=== PATIENT | female | born 1985 | race Caucasian/White ===

== ENCOUNTER 2017-12-14 16:28 | Emergency (ER) | payer OTHER ==
[2017-12-14 16:56] LABS: PLATELET COUNT 245 10^3/uL (150-400)
--- NOTE | 2017-12-14 16:57 | EDPHY ---
H & P Time Seen by Provider: 12/14/17 16:32 HPI/ROS: CHIEF COMPLAINT: Left lower abdominal pain HISTORY OF PRESENT ILLNESS: 32-year-old female LMP 11/10/17 presents with left lower quadrant pain. Onset of intermittent sharp and stabbing left lower quadrant pain 1 week ago. The pain occurs at random times, usually lasts 1 hr and then completely resolves. She went to a clinic just prior to arrival and had a positive test. She did not know that she was prior to today. She has ongoing constipation, without recent change. No bowel movement today. No fever, nausea or vomiting. REVIEW OF SYSTEMS: Constitutional: No fever, no chills Eyes: No visual changes ENT: No sore throat Respiratory: No cough, no shortness of breath Cardiac: No chest pain Gastrointestinal: No nausea, no vomiting Genitourinary: no dysuria Musculoskeletal: No leg pain or swelling Skin: No rash Neurological: No headache, no weakness Psychiatric: No depression Past Medical/Surgical History: Denies Social History: Smoking Status: Never smoked Physical Exam: General Appearance: Alert, pleasant Eyes: Pupils equal and round, no conjunctival pallor ENT, Mouth: Mucous membranes moist Neck: Normal inspection Respiratory: Lungs are clear to auscultation Cardiovascular: Regular rate and rhythm Gastrointestinal: Abdomen is soft and nontender Neurological: A&O, nonfocal, normal gait Skin: Warm and dry Extremities: Normal inspection Psychiatric: Mood and affect normal Constitutional: Initial Vital Signs Temperature (C) 36.7 C 12/14/17 16:30 Heart Rate 99 12/14/17 16:30 Respiratory Rate 17 12/14/17 16:30 Blood Pressure 115/93 H 12/14/17 16:30 O2 Sat (%) 99 12/14/17 16:30 O2 Delivery Mode Room Air Allergies/Adverse Reactions: No Known Allergies Allergy (Unverified 12/14/17 16:34) Home Medications: Medication Instructions Recorded FOLIC ACID 12/14/17 Vitamin B-12 12/14/17 Medical Decision Making - Diagnostics Imaging Results: Obstetrics Ultrasound 12/14/17 16:33 Impression: 1. Multiple tiny cystic areas in the endometrium, one of which could correspond to a gestational sac, although a definite gestational sac is not identified. Serial correlation with hCG is recommended with ultrasound, as clinically warranted. 2. Nonvisualization of the right ovary. Findings discussed with Onelia S. [place], M.D., on December 14, 2017 at 1737. ED Course/Re-evaluation: This patient presents with very early and intermittent left sided abdominal pain. Abdomen is soft and nontender on my exam. Clinically, I doubt that she has an ectopic . Pt localizes pain to just left of umbilicus. Pelvic ultrasound performed and reveals a 3 mm cystic area within the uterus, possibly an early . There is no evidence of ectopic or ovarian cyst. She remains asymptomatic on re-evaluation. Abdomen remained soft and nontender. I feel that she can follow up with [facility] [employer] for repeat quant bhcg in 2-3 days and for further evaluation. The left lower quadrant pain may certainly be secondary to constipation. The pain is not severe and I do not suspect renal colic or other worrisome etiology. Ectopic and abd pain precautions given. Differential Diagnosis: Differential diagnosis includes though it is not limited to ectopic , ovarian cyst, ovarian torsion, PID, UTI, appendicitis. - Data Points Laboratory Results: Laboratory Results 12/14/17 16:45 12/14/17 16:45 Departure - Departure Disposition: Home, Routine, Self-Care Clinical Impression: Abdominal pain Qualifiers: Abdominal location: left lower quadrant Qualified Code(s): R10.32 - Left lower quadrant pain Condition: Good Instructions: Acute Abdominal Pain (ED) Additional Instructions: Return for worsening pain, fever, dizziness, vaginal bleeding or any concerns. Drink plenty of fluids. Referrals: Xenia Iqbal MD [Medical Doctor] - As per Instructions (Call to make an appointment. You should have a repeat blood test on Sunday or Sunday.)
[2017-12-14 18:07] VITALS: BP 127/76
== END 2017-12-14 18:10 | disposition home or self-care (01) ==
DX: O26.891 Other specified pregnancy related conditions, first trimester (principal); R10.32 Left lower quadrant pain; Z3A.01 Less than 8 weeks gestation of pregnancy

== ENCOUNTER 2018-08-18 07:44 | Inpatient (IN) | payer OTHER ==
[2018-08-18] MEDS ORDERED: TERBUTALINE SULFATE 1 MG/ML VIAL IV PRN (08:41)
[2018-08-18] MEDS ORDERED: OXYTOCIN/RINGERS LACTATE 1,000 ML IV PRN (08:41)
[2018-08-18] MEDS ORDERED: IBUPROFEN 600 MG TAB PO PRN (08:41)
[2018-08-18] MEDS ORDERED: MISOPROSTOL 200 MCG TAB PR PRN (08:41)
[2018-08-18] MEDS ORDERED: OLIVE OIL 118 ML BTL MISC PRN (08:41)
[2018-08-18] MEDS ORDERED: LIDOCAINE 1% 300 MG/30 ML SDV SC PRN (08:41)
[2018-08-18] MEDS ORDERED: EPSOM SALT 454 GM TP PRN (08:41)
[2018-08-18] MEDS ORDERED: LR 1,000 ML IV PRN (08:41)
[2018-08-18] MEDS ORDERED: PENICILLIN G POTASSIUM 5,000,000 UNIT in D5W 150 ML IV ONE (08:44)
[2018-08-18 09:26] LABS: PLATELET COUNT 173 10^3/uL (150-400)
--- NOTE | 2018-08-18 11:44 | GHP ---
DATE OF ADMISSION: 08/18/2018 HISTORY: The patient is a 32-year-old, G1, P0, at 39+ weeks' gestation with an estimated due date of 08/20/2018, who presents to Labor and Delivery after leakage of fluid that began this a.m., approximately 5 to 6 a.m. The fluid has been clear, but the patient has noted scant blood when she goes to the bathroom. The patient has felt good movement and essentially not noticing anything that she would consider a contraction. Occasionally, she has lower abdominal cramping. The patient was aware of a positive GBS culture and presents to Labor and Delivery knowing she needs antibiotics. CARE: The patient has been followed with [facility] since first trimester; however, she was in [place] for 2 months during the second trimester. The patient has essentially had an uncomplicated other than a visit to the emergency room at 5 weeks gestation due to cramping, which spontaneously resolved. The anatomy scan was done in [facility] and was felt to have inadequate anatomy clearance for cardiac sites and the patient had a repeat ultrasound at 36 weeks gestation with [facility]. All anatomy was cleared. The posterior placenta was normal and not low. There is normal amniotic fluid. Estimated weight was the 72nd percentile in the vertex position. Several times during visits, the patient has discussed fear of vaginal exams and fear of Pitocin and desire to avoid induction or need for medication. The patient recently has been asking for an elective if she does not spontaneously labor. The patient and our office staff have been going to trying to contact insurance to see if an elective would be covered by insurance. No answer from insurance at this point. LABS: Include maternal blood type A positive with negative antibody screen. RPR nonreactive. Rubella immune. Hepatitis B surface antigen negative. HIV negative. Standard genetic testing was negative. Verify genetic testing was normal. MSAFP was negative. Urine drug screen was negative. Urine gonorrhea and chlamydia were negative. Urine culture was negative, other than small counts of group B strep. Varicella testing was immune. A 2-hour glucose test was normal in [place]. Hematocrit have varied between 37 and 38 through the . GBS vaginal culture was not repeated as it was identified in the urine. PAST MEDICAL HISTORY: Negative. PAST SURGICAL HISTORY: Negative. ALLERGIES: Patient has no known drug allergies. CURRENT MEDICATIONS: Only vitamins. SOCIAL HISTORY: The patient is . Lives with her . The patient is a nonsmoker. No alcohol or drug use. FAMILY HISTORY: Down syndrome in a cousin and the patient has a maternal uncle and a paternal uncle who have had strokes. Patient's father and paternal uncle have cardiac abnormal valves. REVIEW OF SYSTEMS: The patient has cramping as noted in the HPI. The patient, otherwise, other than anxiety about labor and exams, does not have any complaints. Is not having any shortness of breath or wheezing. Has not had any abnormal heart patterns, chest pain, or palpitations. Patient has no nausea or vomiting, or diarrhea. Patient has had the leakage of fluid as noted above with trace blood. PHYSICAL EXAM: VITAL SIGNS: Normal vital signs and is afebrile. See nursing documentation for full details. GENERAL: The patient is a well-developed, well -nourished, [place] female in no signs of physical discomfort, other than when she is laying flat describes low abdominal cramps. LUNGS: Clear to auscultation bilaterally. CARDIOVASCULAR: Regular rate and rhythm. ABDOMEN: Shows a gravid uterus. heart tone monitoring reveals very quiet patterns of cardiac activity with a baseline in the 140s with reduced variability and minimal accelerations, alternating with periods of category 1 signs with good variability and accelerations. There are no decelerations noted. The baby 's pattern is consistent with sleep wake cycles. Contraction monitoring initially picked up contractions that the patient did not perceive approximately every 10 minutes, but these have reduced after high IV hydration. PELVIC: Deferred. EXTREMITIES: Nontender and mild lower extremity edema. ASSESSMENT: Intrauterine at 39+ weeks' gestation, spontaneous rupture of membranes with clear fluid. Positive group B Streptococcus culture in the urine and currently has received her first dose of penicillin antibiotics. Maternal blood type A positive, rubella immune. Patient has a strong anxiety about medications for induction and has discussed wanting a primary section if she does not spontaneously labor. PLAN: The patient will continue to receive antibiotics q.4 hours. We will have intermittent monitoring until contractions increase, unless the patient desires to have cardiac monitoring more regularly for reassurance. The patient was given options of non-medication ways to stimulate as far as acupuncture and possibly nipple stimulation. The patient is advised that generally, I would recommend stimulating contractions if she has not had any signs of spontaneous labor by 12 hours of rupture of membranes. The patient is given reassurance that medications are used with close surveillance of tolerance of contraction pattern, and in general recommend trying to induce her labor to attempt a vaginal as opposed to doing an elective . The patient will consider whether or not she will agree to medications if no spontaneous onset of labor. If the patient has not spontaneously had a good labor pattern or agree to any medication, I would generally recommend section after 24 hours of rupture of membranes. /[id number]/MODL MTDD
[2018-08-18] MEDS: PENICILLIN G POTASSIUM 2,500,000 UNIT in D5W 150 ML IV SCH ×3 (13:35→20:00)
--- NOTE | 2018-08-18 13:56 | OBPROG ---
Labor Progress Note Assessment/Plan: Assessment: IUP at 39+wks SROM, clear with +GBS bacturia and on abx no onset of labor yet. vtx Plan: Will cont q 4 hr abx and intermittent monitoring. if no SOOC by 6 pm will offer misoprostil buccal. Pt has declined exam until laboring. 08/18/18 13:53 Subjective/Intrapartum Course: 08/18/18 13:55 Pt doing fine. Willing to wait for labor. occas cramps. Objective: 08/18/18 09:04 Patient ABO/Rh A POSITIVE 08/18/18 09:04 - SVE Membranes: SROM (6a) Amniotic Fluid Color: Clear - Contraction Pattern Assessment Current Contraction Pattern: Other (Specify) (infreq) - FHR Assessment Echeverria FHR (bpm): 130 FHR Pattern Variability: Moderate FHR Category: 1 (reactive for NSTs, good accels, GBTBV, no decels) Oxytocin Orders Assessment - Pre-Induction/Augmentation Assessment Gestational Age: 39 week(s) and 5 day(s) ICD10 Worksheet Patient Problems: Problems Problem Status Onset EARLY LABOUR Acute SROM Acute
[2018-08-18] MEDS ORDERED: MISOPROSTOL 100 MCG TAB PO PRN (18:39)
[2018-08-18] MEDS ORDERED: AMMONIA AROMATIC 1 EACH AMP IH ONE (19:02)
[2018-08-18] MEDS ORDERED: LIDOCAINE 1% 300 MG/30 ML SDV ONE (19:02)
[2018-08-18] MEDS ORDERED: OLIVE OIL 118 ML BTL ONE (19:02)
[2018-08-18] MEDS ORDERED: MISOPROSTOL 200 MCG TAB ONE (19:03)
[2018-08-18] MEDS ORDERED: TERBUTALINE SULFATE 1 MG/ML VIAL ONE (19:03)
[2018-08-18] MEDS ORDERED: OXYTOCIN 10 UNIT/ML VIAL ONE (19:03)
[2018-08-18] MEDS: AMPICILLIN SODIUM 1 GM in NS 100 ML IV SCH (21:37)
--- NOTE | 2018-08-18 23:54 | OBPROG ---
Labor Progress Note Assessment/Plan: Assessment: IUP at 39+wks SROM, clear with +GBS bacturia and on abx induction with misoprostil, first dose approx 2 hrs ago - contrx building vtx Plan: Will cont q 4 hr abx. Cont monitoring now with ctxns q 4-5. Cat I tracing. Pt has declined exam until MARY. May have MARY whenever 08/18/18 13:53 08/18/18 23:47 Subjective/Intrapartum Course: 08/18/18 13:55 Pt doing fine. Willing to wait for labor. occas cramps. 08/18/18 23:54 Pt doing ok. Feeling ctxn pressure like strong menstral cramps. recurring q 4- 5 min. wants to have prediction about how long it'll take - hard to evaluate without exam. cont clear fluid leaking - some blood tinged. disc plan of miso q 4 hrs. MARY whenever desired Objective: 08/18/18 09:04 Patient ABO/Rh A POSITIVE 08/18/18 09:04 - SVE Membranes: SROM (6a) Amniotic Fluid Color: Clear - Contraction Pattern Assessment Current Contraction Pattern: Regular (q 4-6 min), Other (Specify) (infreq) - FHR Assessment Echeverria FHR (bpm): 150 FHR Pattern Variability: Moderate FHR Category: 1 Oxytocin Orders Assessment - Pre-Induction/Augmentation Assessment Gestational Age: 39 week(s) and 5 day(s) ICD10 Worksheet Patient Problems: Problems Problem Status Onset EARLY LABOUR Acute SROM Acute
[2018-08-19] MEDS ORDERED: PHENYLEPHRINE HCL 100 MCG/ML SYR ONE (00:44)
[2018-08-19] MEDS ORDERED: fentaNYL 100 MCG/2 ML INJ ONE (00:44)
[2018-08-19] MEDS ORDERED: fentaNYL 200 MCG, BUPIVACAINE 0.5% 20 ML in NS 100 ML EP ONE (01:00)
[2018-08-19] MEDS ORDERED: PHENYLEPHRINE HCL 100 MCG/ML SYR IVP PRN (01:14)
[2018-08-19] MEDS ORDERED: NALOXONE HCL 0.4 MG/ML INJ IVP PRN (01:14)
[2018-08-19] MEDS ORDERED: ONDANSETRON 4 MG/2 ML VIAL IVP PRN (01:14)
--- NOTE | 2018-08-19 01:16 | PREANESOB ---
Obstetric Pre-Anesthesia Info - General Info Proposed Procedure: labor epidural NPO Start Time: 19:00 : 1 Para: 0 AMALIA: 08/20/18 Gestational Age: 39 week(s) and 5 day(s) - Info Status: Full Term Monitors: External FHR Pattern: Reassuring - Labor Status Amniotic Fluid Color: Clear Magnesium Sulfate in Use: No Indications for Labor Analgesia: Pain Control Labor Epidural: Yes Anesthesia Allergies/Adverse Reactions: Allergy/AdvReac Type Severity Reaction Status Date / Time No Known Allergies Allergy Verified 08/18/18 19:06 Home Medications: Medication Instructions Recorded FOLIC ACID 12/14/17 Vitamin B-12 12/14/17 Visit Medications: Generic Name Dose Route Start Last Admin Trade Name Freq PRN Reason Stop Dose Admin Ephedrine Sulfate 10 mg 08/19/18 01:14 Ephedrine Sulfate IV 02/15/19 01:13 .Q2M PRN Hypotension Lactated Ringer's 1,000 mls @ 0 mls/hr 08/18/18 08:41 08/18/18 09:04 Lr IV 08/19/18 08:40 1,000 mls PRN PRN Administration SEE PROTOCOL CONDITIONS Protocol Per Protocol Oxytocin/Lactated Ringer's 1,000 mls @ 125 mls/hr 08/18/18 08:41 Pitocin 20 Units/Lr (Premix) IV PRN PRN Post bleeding Ampicillin Sodium 1 gm/ Sodium 100 mls @ 200 mls/hr 08/18/18 21:45 08/18/18 21:37 Chloride IV 09/17/18 21:44 100 mls Q4H HELENE Administration Protocol Fentanyl/Bupivacaine HCl 100 mls @ 0 mls/hr 08/19/18 01:30 Fentanyl/Bupivacaine/Ns 2 Mcg/Ml 0.1% (Premix EP 08/29/18 01:29 CONT HELENE Protocol As Directed Lactated Ringer's 500 mls @ 0 mls/hr 08/19/18 01:30 Lr IV 02/15/19 01:29 CONT HELENE As Directed Ibuprofen 600 mg 08/18/18 08:41 Motrin PO ONCE PRN post , pain Lidocaine HCl 300 mg 08/18/18 08:41 Lidocaine Hcl 1% SC 02/14/19 08:40 ONCE PRN episiotomy Magnesium Sulfate 454 gm 08/18/18 08:41 Epsom Salt TP 06/07/19 08:40 Q1H PRN perineal discomfort Misoprostol 800 - 1,000 mcg 08/18/18 08:41 Cytotec MI ONCE PRN Vaginal Atony/Bleeding Misoprostol 50 mcg 08/18/18 18:39 08/18/18 21:37 Cytotec PO 02/14/19 18:38 50 mcg Q4H PRN Administration FOR INDUCTION Naloxone HCl 0.4 mg 08/19/18 01:14 Narcan IVP 02/15/19 01:13 PRN PRN Respiratory depression Hazel Green Oil 118 ml 08/18/18 08:41 Sweet Oil MISC 02/14/19 08:40 ONCE PRN perineal massage Ondansetron HCl 4 mg 08/19/18 01:14 Zofran IVP 08/20/18 01:13 Q4HRS PRN Nausea/Vomiting, Can't Take PO Phenylephrine HCl 100 mcg 08/19/18 01:14 Neosynephrine IVP 02/15/19 01:13 .Q2M PRN Hypotension Terbutaline Sulfate 0.25 mg 08/18/18 08:41 Brethine IV 02/14/19 08:40 ONCE PRN Tachysystole Discontinued Medications Generic Name Dose Route Start Last Admin Trade Name Freq PRN Reason Stop Dose Admin Ammonia (Aromatic Spirit) Confirm 08/18/18 19:02 Ammonia Aromatic Administered 08/18/18 19:03 Dose 1 each IH .STK-MED ONE Fentanyl Confirm 08/19/18 00:44 Sublimaze Administered 08/19/18 00:45 Dose 100 mcg .ROUTE .STK-MED ONE Penicillin G Potassium 5,000, 160 mls @ 160 mls/hr 08/18/18 08:44 08/18/18 09 :27 000 unit/ Dextrose IV 08/18/18 09:43 160 mls ONCE ONE Administration Protocol Penicillin G Potassium 2,500, 155 mls @ 155 mls/hr 08/18/18 10:00 08/18/18 20 :00 000 unit/ Dextrose IV 09/17/18 09:59 Not Given Q4HRS HELENE Protocol Fentanyl 200 mcg/ Bupivacaine 100 mls @ 0 mls/hr 08/19/18 01:00 HCl 20 ml/ Sodium Chloride EP 08/19/18 01:01 ONCALL ONE Protocol As Directed Lidocaine HCl Confirm 08/18/18 19:02 Lidocaine Hcl 1% Administered 08/18/18 19:03 Dose 300 mg .ROUTE .STK-MED ONE Misoprostol Confirm 08/18/18 19:03 Cytotec Administered 08/18/18 19:04 Dose 1,000 mcg .ROUTE .STK-MED ONE Hazel Green Oil Confirm 08/18/18 19:02 Sweet Oil Administered 08/18/18 19:03 Dose 118 ml .ROUTE .STK-MED ONE Oxytocin Confirm 08/18/18 19:03 Pitocin Administered 08/18/18 19:04 Dose 40 unit .ROUTE .STK-MED ONE Phenylephrine HCl Confirm 08/19/18 00:44 Neosynephrine Administered 08/19/18 00:45 Dose 1,000 mcg .ROUTE .STK-MED ONE Terbutaline Sulfate Confirm 08/18/18 19:03 Brethine Administered 08/18/18 19:04 Dose 1 mg .ROUTE .STK-MED ONE - Anesthesia History Response to Local Anesthetics: Normal Anesthesia & Operative History: No Prior Problems Family Anesthesia History: Negative - Social History Substance Use/Abuse: Denies - Vital Signs Height/Weight (Nursing): Height 172.72 cm Weight 101.151 kg - Focused Exam Mallampati Score: Class 2 Mouth exam: normal dental/mouth exam Pulmonary: no respiratory distress Cardiovascular: regular rate and rhythym Labs: 08/18/18 09:04 Patient ABO/Rh A POSITIVE 08/18/18 09:04 - Plan Consent Signed and on Chart: Yes Patient/Guardian Understands and Agrees to Plan: Yes
[2018-08-19] MEDS ORDERED: fentaNYL 200 MCG, BUPIVACAINE 0.5% 20 ML in NS 100 ML EP SCH (01:30)
[2018-08-19] MEDS ORDERED: fentaNYL 2MCG/ML/BUP 0.1% RTU 100 ML EP SCH (01:30)
[2018-08-19] MEDS ORDERED: LR 500 ML IV SCH (01:30)
[2018-08-19] MEDS: AMPICILLIN SODIUM 1 GM in NS 100 ML IV SCH ×3 (02:18→10:19)
--- NOTE | 2018-08-19 05:55 | OBPROG ---
Labor Progress Note Assessment/Plan: Assessment: IUP at 39+wks SROM, clear with +GBS bacturia and on abx -- 24 HOUR ROM induction with misoprostil, only dose at 9:45 vtx MARY - reports pain and refuses an exam currently and anesth on way to redose Plan: Will cont q 4 hr abx. Recent RN exam at approx 5a was probably complete - she couldn't feel cervix/-1 station but she wanted confirmation 08/18/18 13:53 08/18/18 23:47 08/19/18 05:48 Subjective/Intrapartum Course: 08/18/18 13:55 Pt doing fine. Willing to wait for labor. occas cramps. 08/18/18 23:54 Pt doing ok. Feeling ctxn pressure like strong menstral cramps. recurring q 4- 5 min. wants to have prediction about how long it'll take - hard to evaluate without exam. cont clear fluid leaking - some blood tinged. disc plan of miso q 4 hrs. MARY whenever desired 08/19/18 05:55 pt had rec'd first dose of miso at 9:45 last pm. Stated cramping cont to increase and req'd MARY at 00:21 - this was placed by Dr Cast and when RN checked cx after she was comfortable, it was 2-3/70/-2 (2:12a). RN checked on her several times and she was sleeping. Pt reports that pain has been building despite the MARY and this has made her very anxious as she thought she wouldn't feel anything. She just pushed button 3 times in a row and reports better pain control - but refuses exam until Dr Cast comes to increase medicine. RN checked her at approx 5:10, but pt quite uncomf and guarding with exam and RN not sure of her exam but felt she was complete/-1. Objective: 08/18/18 09:04 Patient ABO/Rh A POSITIVE 08/18/18 09:04 - SVE Membranes: SROM (6a) Amniotic Fluid Color: Clear - Contraction Pattern Assessment Current Contraction Pattern: Regular (q 3-5 min), Other (Specify) Oxytocin Orders Assessment - Pre-Induction/Augmentation Assessment Gestational Age: 39 week(s) and 5 day(s) ICD10 Worksheet Patient Problems: Problems Problem Status Onset EARLY LABOUR Acute Prolonged rupture of membranes Acute SROM Acute - ICD10 Problem Qualifiers (1) Prolonged rupture of membranes
[2018-08-19] MEDS ORDERED: LIDOCAINE 2% 2 ML INJ ONE ×2 (06:04)
[2018-08-19] MEDS ORDERED: LR 500 ML IV PRN (06:15)
[2018-08-19] MEDS ORDERED: OXYTOCIN/RINGERS LACTATE 500 ML IV SCH (06:30)
--- NOTE | 2018-08-19 07:58 | OBPROG ---
Labor Progress Note Assessment/Plan: Assessment: 23 at 39w6d, s/p PROM x 25+ hours now, has reached complete dilation as of nearly 2 hours ago. Currently, no e/o chorioamnionitis. Long course regarding pt's discomfort and anxiety with vaginal exams. Epidural has been bolused and pt currently not feeling any pain. GBS pos - has been on amp. Plan: Continue pitocin - will try to optimize timing of contractions and start pushing soon. Anticipate vaginal delivery. Cont amp until delivery. Xenia Iqbal MD, FACOG, [facility] 08/19/18 07:44 Subjective/Intrapartum Course: 08/18/18 13:55 Pt doing fine. Willing to wait for labor. occas cramps. 08/18/18 23:54 Pt doing ok. Feeling ctxn pressure like strong menstral cramps. recurring q 4- 5 min. wants to have prediction about how long it'll take - hard to evaluate without exam. cont clear fluid leaking - some blood tinged. disc plan of miso q 4 hrs. MARY whenever desired 08/19/18 05:55 pt had rec'd first dose of miso at 9:45 last pm. Stated cramping cont to increase and req'd MARY at 00:21 - this was placed by Dr Cast and when RN checked cx after she was comfortable, it was 2-3/70/-2 (2:12a). RN checked on her several times and she was sleeping. Pt reports that pain has been building despite the MARY and this has made her very anxious as she thought she wouldn't feel anything. She just pushed button 3 times in a row and reports better pain control - but refuses exam until Dr Cast comes to increase medicine. RN checked her at approx 5:10, but pt quite uncomf and guarding with exam and RN not sure of her exam but felt she was complete/-1. 08/19/18 07:58 Pt currently is resting comfortably. Still quite anxious about pushing and pain. Not feeling any pain currently. Objective: 08/18/18 09:04 Patient ABO/Rh A POSITIVE 08/18/18 09:04 Pt resting comfortably, with oxygen mask on, Farid at bedside holding her hand. - SVE Membranes: SROM (6a) Amniotic Fluid Color: Clear - Contraction Pattern Assessment Current Contraction Pattern: Regular (q 3-5 min), Other (Specify) (contractions q 2-5 min currently) - FHR Assessment Echeverria FHR Pattern Variability: Moderate FHR Category: 1 (occasional variable contraction) Oxytocin Orders Assessment - Pre-Induction/Augmentation Assessment Gestational Age: 39 week(s) and 5 day(s) ICD10 Worksheet Patient Problems: Problems Problem Status Onset Prolonged rupture of membranes Acute
--- NOTE | 2018-08-19 09:39 | OBPROG ---
Labor Progress Note Assessment/Plan: Assessment: 23 at 39w6d, s/p PROM x 25+ hours now, has reached complete dilation as of nearly 2 hours ago. Currently, no e/o chorioamnionitis. Long course regarding pt's discomfort and anxiety with vaginal exams. Epidural has been bolused and pt currently not feeling any pain. GBS pos - has been on amp. Plan: Continue pitocin - will try to optimize timing of contractions and start pushing soon. Anticipate vaginal delivery. Cont amp until delivery. Xenia Iqbal MD, FACOG, [facility] 08/19/18 07:44 08/19/18 09:36 A/p: 23 G1 at 39w6d, s/p PROM 28 hours - currently no e/o chorioamnionitis. Has been completely dilated over 3.5 hours, passive descent allowed due to pt anxiety and pain control issues - has just started pushing. Anxiety level is very high, very concerned about pain and pushing - but has done well - pushing became effective after the first 3-4 contractions. I pushed with her for about 15 minutes, at pt request. Anticipate vaginal delivery. Xenia Iqbal MD, FACOG Subjective/Intrapartum Course: 08/18/18 13:55 Pt doing fine. Willing to wait for labor. occas cramps. 08/18/18 23:54 Pt doing ok. Feeling ctxn pressure like strong menstral cramps. recurring q 4- 5 min. wants to have prediction about how long it'll take - hard to evaluate without exam. cont clear fluid leaking - some blood tinged. disc plan of miso q 4 hrs. MARY whenever desired 08/19/18 05:55 pt had rec'd first dose of miso at 9:45 last pm. Stated cramping cont to increase and req'd MARY at 00:21 - this was placed by Dr Cast and when RN checked cx after she was comfortable, it was 2-3/70/-2 (2:12a). RN checked on her several times and she was sleeping. Pt reports that pain has been building despite the MARY and this has made her very anxious as she thought she wouldn't feel anything. She just pushed button 3 times in a row and reports better pain control - but refuses exam until Dr Cast comes to increase medicine. RN checked her at approx 5:10, but pt quite uncomf and guarding with exam and RN not sure of her exam but felt she was complete/-1. 08/19/18 07:58 Pt currently is resting comfortably. Still quite anxious about pushing and pain. Not feeling any pain currently. 08/19/18 09:39 Pt anxious but willing to push. Was able to push effectively after being coached for the first few contractions. Objective: 08/18/18 09:04 Patient ABO/Rh A POSITIVE 08/18/18 09:04 37.2 74 109/62 90% on RA SVE c/c/+2 with pushing, clear fluid comes out with each push. - SVE Membranes: SROM (6a) Amniotic Fluid Color: Clear - Contraction Pattern Assessment Current Contraction Pattern: Regular (q 3-5 min), Other (Specify) (contractions q 2-5 min currently) - FHR Assessment Echeverria FHR (bpm): 150 FHR Pattern Variability: Moderate FHR Category: 2 (variable contractions with pushing) Oxytocin Orders Assessment - Pre-Induction/Augmentation Assessment Gestational Age: 39 week(s) and 5 day(s) ICD10 Worksheet Patient Problems: Problems Problem Status Onset Prolonged rupture of membranes Acute
--- NOTE | 2018-08-19 11:07 | OBDEL ---
Info Type: Vaginal Presentation at Delivery: Vertex L&D Analgesia/Anesthesia Type: Epidural GBS+: Yes Antibiotic Used for + GBS: Ampicillin Intrapartum Medications: Generic Name Dose Route Start Last Admin Trade Name Freq PRN Reason Stop Dose Admin Ampicillin Sodium 1 gm/ Sodium 100 mls @ 200 mls/hr 08/18/18 21:45 08/19/18 10:19 Chloride IV 09/17/18 21:44 100 mls Q4H HELENE Administration Protocol Oxytocin/Lactated Ringer's 500 mls @ 0 mls/hr 08/19/18 06:30 08/19/18 06:39 Pitocin 30 Units/Lr (Premix) IV 02/15/19 06:29 500 mls CONT HELENE Administration Protocol Per Protocol Misoprostol 50 mcg 08/18/18 18:39 08/18/18 21:37 Cytotec PO 02/14/19 18:38 50 mcg Q4H PRN Administration FOR INDUCTION Discontinued Medications Generic Name Dose Route Start Last Admin Trade Name Freq PRN Reason Stop Dose Admin Lactated Ringer's 1,000 mls @ 0 mls/hr 08/18/18 08:41 08/18/18 09:04 Lr IV 08/19/18 08:40 1,000 mls PRN PRN Administration SEE PROTOCOL CONDITIONS Protocol Per Protocol Penicillin G Potassium 5,000, 160 mls @ 160 mls/hr 08/18/18 08:44 08/18/18 09 :27 000 unit/ Dextrose IV 08/18/18 09:43 160 mls ONCE ONE Administration Protocol Penicillin G Potassium 2,500, 155 mls @ 155 mls/hr 08/18/18 10:00 08/18/18 20 :00 000 unit/ Dextrose IV 09/17/18 09:59 Not Given Q4HRS [facility] Protocol Fentanyl 200 mcg/ Bupivacaine 100 mls @ 0 mls/hr 08/19/18 01:00 08/19/18 02: 10 HCl 20 ml/ Sodium Chloride EP 08/19/18 01:01 100 mls ONCALL ONE Administration Protocol As Directed - Hospital Course Intrapartum: 08/18/18 13:55 Pt doing fine. Willing to wait for labor. occas cramps. 08/18/18 23:54 Pt doing ok. Feeling ctxn pressure like strong menstral cramps. recurring q 4- 5 min. wants to have prediction about how long it'll take - hard to evaluate without exam. cont clear fluid leaking - some blood tinged. disc plan of miso q 4 hrs. MARY whenever desired 08/19/18 05:55 pt had rec'd first dose of miso at 9:45 last pm. Stated cramping cont to increase and req'd MARY at 00:21 - this was placed by Dr Cast and when RN checked cx after she was comfortable, it was 2-3/70/-2 (2:12a). RN checked on her several times and she was sleeping. Pt reports that pain has been building despite the MARY and this has made her very anxious as she thought she wouldn't feel anything. She just pushed button 3 times in a row and reports better pain control - but refuses exam until Dr Cast comes to increase medicine. RN checked her at approx 5:10, but pt quite uncomf and guarding with exam and RN not sure of her exam but felt she was complete/-1. 08/19/18 07:58 Pt currently is resting comfortably. Still quite anxious about pushing and pain. Not feeling any pain currently. 08/19/18 09:39 Pt anxious but willing to push. Was able to push effectively after being coached for the first few contractions. Indications for Delivery: SROM Vaginal Delivery - Delivery Provider Delivery Physician/CNM: Xenia Iqbal - Labor and Delivery Onset of Contractions Date: 08/18/18 Onset of Contractions Time: 06:00 Onset of Contractions Type: Induced Rupture of Membranes Date: 08/18/18 Rupture of Membranes Time: 06:00 Rupture of Membranes Type: Spontaneous Amniotic Fluid Color: Clear Dilation Complete Date: 08/19/18 Dilation Complete Time: 05:45 Placenta Delivery Date: 08/19/18 Placenta Delivery Time: 10:33 Total Hours of Labor: 28 Laceration: 2nd Degree, Other (Specify) (bilateral sulcus tears) Repair: 3-0, Vicryl Vaginal Sponge Count Correct: Yes Vaginal Needle Count Correct: Yes Vaginal Sweep Performed: Yes EBL: 300 Delivery Events: Nuchal Cord (x1) Delivery Comment: Pt admitted after SROM at 0600 on 08/18/18 and declined an exam until 0215 on 06/27. Cephalic presentation was confirmed by US. Finally agreed to misoprostil induction, which stimulated labor. She received an epidural. She progressed to complete dilation by 0545 (her second vaginal exam). Passive descent was allowed for a prolonged period due to issues with pain control and anxiety. She then pushed for just over 1 hr and 18 min. The vertex delivered, JF presentation, one nuchal cord was reduced on the perineum, and bulb suctioning was done on the perineum. Easy delivery of body with one more push, no dystocia noted. Baby was delivered immediately to maternal chest. Cord clamping was delayed by 1 minute, then was cut. 2nd deg lac ws noted, along with bilateral sulcus tears - all repaired in the standard fashion with 3.0 Vicryl. Pt tolerated the procedure well, and had Apgars of 9 at 1 min and 10 at 5 min, and was left in the room, stable, with RN present. - Medications Labor Augmentation/Induction Methods Used: Pitocin, Misoprostol Labor Augmentation/Induction Indication: Inadequate Contraction Frequency, Inadequate Contraction Strength [place] Data AMALIA: 08/20/18 Gestational Age: 39 week(s) and 6 day(s) [place] Delivery Date: 08/19/18 Delivery Time: 10:31 Sex of : Female Score (1 Min): 9 Score (5 Min): 10 ICD10 Worksheet Patient Problems: Problems Problem Status Onset Prolonged rupture of membranes Acute (spontaneous vaginal delivery) Acute - ICD10 Problem Qualifiers (1) (spontaneous vaginal delivery)
[2018-08-19] MEDS ORDERED: SIMETHICONE 80 MG TAB CHEW PO PRN (11:31)
[2018-08-19] MEDS ORDERED: HYDROCORTISONE 0.5% CREAM TP PRN (11:31)
[2018-08-19] MEDS ORDERED: DOCUSATE SODIUM 100 MG CAP PO PRN (11:31)
[2018-08-19] MEDS: IBUPROFEN 600 MG TAB PO SCH ×2 (11:45→17:57)
[2018-08-19] MEDS: ACETAMINOPHEN 325 MG TAB PO SCH ×2 (16:49→22:27)
[2018-08-20] MEDS: AMPICILLIN SODIUM 1 GM in NS 100 ML IV SCH ×5 (01:45→23:41)
[2018-08-20] MEDS: ACETAMINOPHEN 325 MG TAB PO SCH ×5 (04:13→22:49)
[2018-08-20] MEDS: IBUPROFEN 600 MG TAB PO SCH ×4 (05:56→17:50)
--- NOTE | 2018-08-20 10:38 | OBPP ---
Progress Note Assessment/Plan: Assessment: 32 y/o PPD #1 s/p doing well Plan: Ordered iron today. consult today. Routine PPC. 08/20/18 10:37 Subjective/ Course: 08/20/18 10:35 Pt is doing well this am. She continues to have perineal pain and some rectal pain. She is taking Ibuprofen and Tylenol regularly. Min lochia, ambulating and voiding without difficulty. She is working on breast feeding, baby is having difficulty latching on left breast. Objective: 08/20/18 06:05 Patient ABO/Rh A POSITIVE 08/18/18 09:04 Temp Pulse Resp BP Pulse Ox 36.1 C 77 14 102/72 93 08/20/18 08:00 08/20/18 08:00 08/20/18 08:00 08/20/18 08:00 08/20/18 08:00 Uterine Position/Fundal Height: Umbilicus -2 Uterine Tone: Firm Physical Exam - Physical Exam General Appearance: alert, no apparent distress Neck: non-tender, full range of motion, supple Respiratory: chest non-tender, lungs clear, normal breath sounds Cardiac/Chest: regular rate, rhythm Abdomen: normal bowel sounds, other (perineum well approximated, no hemorrhoids , no edema) Extremities: swelling (1+), Kiarra's sign (neg)
--- NOTE | 2018-08-20 11:26 | POSTANESTH ---
Post Anesthetic Evaluation Cardiovascular Status: Normal, Stable, Similar to Pre-Op Cond Respiratory Status: Normal, Stable, Similar to Pre-op Cond. Level of Consciousness/Mental Status: Can Participate in Eval, Alert and Oriented Pain Control: Adequate, Prn Tx Ordered Nausea/Vomiting Control: Adequate, Prn Tx Ordered Complications Possibly Related to Anesthesia: None Noted Notes: Block completely resolved. No ill-effects, back site c/d/i, no e/e/e. NO AGUILAR/N/ V. Able to ambulate.
[2018-08-20] MEDS: FERRO-SEQUELS 65 MG TAB.ER PO SCH ×2 (16:46→22:18)
[2018-08-21] MEDS: IBUPROFEN 600 MG TAB PO SCH ×3 (00:09→12:07)
[2018-08-21] MEDS: ACETAMINOPHEN 325 MG TAB PO SCH ×2 (06:14→12:08)
--- NOTE | 2018-08-21 09:25 | OBPP ---
Progress Note Assessment/Plan: Assessment: s/p PPD # 2 - pt is stable Plan: Continue routine pp care Plan for d/c home today No Rx given Cont PNV, iron Pelvic rest and lifting restrictions given RTC in 4 weeks for mood check and 6 weeks for pp check 08/21/18 09:22 Subjective/ Course: 08/20/18 10:35 Pt is doing well this am. She continues to have perineal pain and some rectal pain. She is taking Ibuprofen and Tylenol regularly. Min lochia, ambulating and voiding without difficulty. She is working on breast feeding, baby is having difficulty latching on left breast. 08/21/18 09:24 Pt seen and examined. Doing well with no complaints. Mild cramping, controlled with po meds. Mod lochia. Pt is to regular diet, voiding and had a BM last night. Still working on BF with baby girl. Objective: 08/20/18 06:05 Patient ABO/Rh A POSITIVE 08/18/18 09:04 Temp Pulse Resp BP Pulse Ox 36.6 C 76 16 118/80 95 08/20/18 19:57 08/20/18 19:57 08/20/18 19:57 08/20/18 19:57 08/20/18 19:57 Uterine Position/Fundal Height: Umbilicus -2 Uterine Tone: Firm Physical Exam - Physical Exam General Appearance: WD/WN, alert, no apparent distress Respiratory: lungs clear, normal breath sounds Cardiac/Chest: regular rate, rhythm Abdomen: normal bowel sounds, non-tender, soft, flatus (+) Extremities: non-tender, normal inspection Skin: normal color, warm/dry Neuro/Psych: alert, normal mood/affect, oriented x 3
--- NOTE | 2018-08-21 09:26 | OBGCSDC ---
General Delivery Information - General Info : 1 Para: 1 Abortions: 0 Type: Vaginal L&D Analgesia/Anesthesia Type: Epidural Admission Date: 08/18/18 Labs: Patient ABO/Rh A POSITIVE 08/18/18 09:04 Hct 31.8 % (38.0-47.0) L 08/20/18 06:05 - Hospital Course Intrapartum: 08/18/18 13:55 Pt doing fine. Willing to wait for labor. occas cramps. 08/18/18 23:54 Pt doing ok. Feeling ctxn pressure like strong menstral cramps. recurring q 4- 5 min. wants to have prediction about how long it'll take - hard to evaluate without exam. cont clear fluid leaking - some blood tinged. disc plan of miso q 4 hrs. MARY whenever desired 08/19/18 05:55 pt had rec'd first dose of miso at 9:45 last pm. Stated cramping cont to increase and req'd MARY at 00:21 - this was placed by Dr Cast and when RN checked cx after she was comfortable, it was 2-3/70/-2 (2:12a). RN checked on her several times and she was sleeping. Pt reports that pain has been building despite the MARY and this has made her very anxious as she thought she wouldn't feel anything. She just pushed button 3 times in a row and reports better pain control - but refuses exam until Dr Cast comes to increase medicine. RN checked her at approx 5:10, but pt quite uncomf and guarding with exam and RN not sure of her exam but felt she was complete/-1. 08/19/18 07:58 Pt currently is resting comfortably. Still quite anxious about pushing and pain. Not feeling any pain currently. 08/19/18 09:39 Pt anxious but willing to push. Was able to push effectively after being coached for the first few contractions. : 08/20/18 10:35 Pt is doing well this am. She continues to have perineal pain and some rectal pain. She is taking Ibuprofen and Tylenol regularly. Min lochia, ambulating and voiding without difficulty. She is working on breast feeding, baby is having difficulty latching on left breast. 08/21/18 09:24 Pt seen and examined. Doing well with no complaints. Mild cramping, controlled with po meds. Mod lochia. Pt is to regular diet, voiding and had a BM last night. Still working on BF with baby girl. Vaginal - Delivery Provider Delivery Physician/CNM: Xenia Iqbal - Diagnosis Labor: Induced Rupture of Membranes Type: Spontaneous Amniotic Fluid Color: Clear Laceration: 2nd Degree, Other (Specify) (bilateral sulcus tears) Repair: 3-0, Vicryl Delivery Events: Nuchal Cord (x1) - Delivery EBL: 300 Data AMALIA: 08/20/18 Gestational Age: 40 week(s) and 1 day(s) E[place] Delivery Date: 08/19/18 Delivery Time: 10:31 Sex of : Female [place] Weight (gm): 2992 g Score (1 Min): 9 Score (5 Min): 10 Discharge Information - Discharge Information Condition: Good Instruction/Follow Up: Four Weeks (mood check), Six Weeks ( check)
[2018-08-21 09:33] VITALS: BP 134/63
[2018-08-21] MEDS: FERRO-SEQUELS 65 MG TAB.ER PO SCH (12:08)
== END 2018-08-21 13:00 | disposition home or self-care (01) | DRG 807 ==
LOC: FLD 07:44 → OBSVTOIN 07:44 → FOB 08-19 13:40
PROVIDERS: ADMIT Obstetrics & Gynecology; ATTEND Obstetrics & Gynecology
DX: O99.824 Streptococcus B carrier state complicating childbirth (principal); Z37.0 Single live birth; O70.1 Second degree perineal laceration during delivery; O69.82X0 Labor and delivery complicated by other cord entanglement, without compression, not applicable or unspecified; Z3A.40 40 weeks gestation of pregnancy
CPT/HCPCS: J0290; J2370; J2540; J2590; J3010; J3105